=== PATIENT | male | born 1965 | race Hispanic/Latino ===

== ENCOUNTER 2016-06-06 22:23 | Emergency (ER) | payer OTHER, SELFPAY ==
[2016-06-06] MEDS ORDERED: NACL 0.9% 1000 ML 1,000 ML IV ONE (22:40)
[2016-06-06 23:32] LABS: Hematocrit 42.1 % (35.5-45.6); Hemoglobin 14.1 gm/dl (11.8-15.2); Mean Corpuscular HGB Conc 34 % (32-34); Mean Corpuscular Hemoglobin 30 pg (28-32); Mean Corpuscular Volume 91 fl (84-94); Red Blood Count 4.64 M/mm3 (3.65-5.03); Red Cell Distribution Width 14.1 % (13.2-15.2)
[2016-06-06] MEDS ORDERED: NORCO 5/325 PO ONE (23:32)
[2016-06-06 23:35] LABS: Platelet Count 297 K/mm3 (140-440)
[2016-06-06] MEDS ORDERED: NACL 0.9% 1000 ML 1,000 ML ONE (23:38)
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
[2016-06-06 23:43] LABS: INR 0.98 (0.87-1.13); Partial Thromboplastin Time 24.2 Sec. (24.2-36.6)
[2016-06-06 23:47] LABS: Alanine Aminotransferase 16 units/L (7-56); Albumin 3.9 g/dL (3.9-5); Albumin/Globulin Ratio 1.3 %; Alkaline Phosphatase 107 units/L (35-129); Anion Gap 20 mmol/L; BUN/Creatinine Ratio 28.57; Bilirubin,Total 0.3 mg/dL (0.1-1.2); Blood Urea Nitrogen 20 mg/dL (9-20); Calcium 8.8 mg/dL (8.4-10.2); Carbon Dioxide 22 mmol/L (22-30); Glucose 155 mg/dL (75-100); Lipase 28 units/L (13-60); Potassium 4.1 mmol/L (3.6-5.0); Sodium 140 mmol/L (137-145); Total Protein 6.8 g/dL (6.3-8.2)
[2016-06-07 00:40] LABS: Blastocytes % (Manual) 0 %
[2016-06-07 00:41] LABS: Diff Status Complete; RBC Morphology Normal; Smudge Cells Rare
[2016-06-07 02:36] LABS: Bacteria,Urine 1+ /HPF (Negative); Bilirubin,Urine NEG (Negative); Blood,Urine SM (Negative); Ketones,Urine TR mg/dL (Negative); Leukocyte Esterase,Urine NEG (Negative); Mucus,Urine FEW /HPF; Nitrite,Urine NEG (Negative); Protein,Urine <15 mg/dL mg/dL (Negative); Urobilinogen,Urine < 2.0 mg/dL (<2.0)
[2016-06-07 03:07] VITALS: BP 131/69
--- NOTE | 2016-06-07 09:27 | XRay Report ---
Right hand 2 views: History: Hand pain and swelling. Findings: Deformed fifth metacarpal base probably related to old injury. No acute fracture ,periosteal reaction or lytic lesion. No soft tissue calcification. Impression: No acute findings.
== END 2016-06-07 03:08 | disposition home or self-care (01) ==
LOC: ED 22:23
DX: K62.5 Hemorrhage of anus and rectum (principal); M79.89 Other specified soft tissue disorders; R31.9 Hematuria, unspecified; E78.00 Pure hypercholesterolemia, unspecified; K75.9 Inflammatory liver disease, unspecified; F17.200 Nicotine dependence, unspecified, uncomplicated
CPT/HCPCS: 36415; 73120; 80053; 81001; 83690; 85007; 85025; 85610; 85730; 86850; 86900; 86901; 96360; 99284; J7030